=== PATIENT | male | born 2000 | race Caucasian/White ===

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

== ENCOUNTER 2020-01-14 16:05 | Emergency (ER) | payer OTHER, MEDICAID, SELFPAY ==
[2020-01-14 16:24] VITALS: BP 144/73; PULSE 62; RESP 16; TEMP 36.9; O2SAT 97
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
[2020-01-14] MEDS: KETOROLAC 60 MG/2 ML VIAL 30 MG IM (17:29)
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
--- NOTE | 2020-01-14 17:45 | ED_ITS ---
HPI - Extremity Injury (Upper) <LILLIAN Severino - Last Filed: 01/14/20 18:03> General Chief Complaint: Extremity Injury, Upper Stated Complaint: Punched Wall, Right Hand Pain Time Seen by Provider: 01/14/20 17:04 Source: patient Mode of arrival: Ambulatory Limitations: no limitations History of Present Illness HPI narrative: The patient is a 19-year-old male current some day smoker who denies any pertinent medical history presents with a chief complaint of right hand pain after punching a wall yesterday. He states he got angry so he punched a wall. He states he does this about once a year. He took ibuprofen at 9:00 a.m.. He is right-hand dominant. He denies any right wrist or elbow pain. Related Data Home Medications Medication Instructions Recorded Confirmed bupropion HCl 150 mg PO DAILY 01/14/20 01/14/20 prazosin 4 mg PO BID 01/14/20 01/14/20 Previous Rx's Medication Instructions Recorded ketorolac 10 mg PO TID PRN #14 tab 01/14/20 Allergies Allergy/AdvReac Type Severity Reaction Status Date / Time No Known Drug Allergies Allergy Verified 01/14/20 16:26 Review of Systems <LILLIAN Severino - Last Filed: 01/14/20 18:03> Review of Systems Narrative: GENERAL: Denies chills, fatigue, malaise, fever, sweats. HEENT: Denies sinus pain, ear pain, sore throat, difficulty swallowing, dizziness. RESPIRATORY: Denies dyspnea, cough, wheezing, hemoptysis, sputum. CARDIOVASCULAR: Denies chest pain, palpitations, orthopnea, edema, GASTROINTESTINAL: Denies nausea, vomiting, abdominal pain, diarrhea, cons tipation, melena. : Denies dysuria, frequency, incontinence, hematuria, urinary retention. MUSCULOSKELETAL: See HPI SKIN: Denies rash, skin lesions, or other NEUROLOGIC: Denies weakness, headache, numbness, change in speech, confusion, seizures, incoordination. PSYCHIATRIC: No concerning psychosocial issues. 12 point review of systems is negative except for those stated above Patient History <LILLIAN Severino - Last Filed: 01/14/20 18:03> Surgical History History of surgery on upper extremity History of surgical removal of pilonidal cyst History of tonsillectomy Hx of appendectomy Social History Smoking Status: Current some day smoker Smoking Status: Current some day smoker alcohol intake frequency: a few times a month Substance Use Type: marijuana Exam <LILLIAN Severino - Last Filed: 01/14/20 18:03> Narrative Exam Narrative: GENERAL: This is a well-nourished, well-developed patient, in no acute distress HEAD: Atraumatic. Normocephalic. No temporal or scalp tenderness. EYES: Pupils equal round and reactive. Extraocular motions intact. No scleral icterus. No injection or drainage. ENT: Nose without bleeding, purulent drainage or septal hematoma. Wearing a mask. Airway patent. NECK: Trachea midline. No JVD or lymphadenopathy. Supple, nontender, no meningeal signs. CARDIOVASCULAR: Regular rate and rhythm RESPIRATORY: No cough. No increased respiratory effort. No accessory muscle use. EXTREMITIES: Pain to palpation distal to right 5th digit, no visual abnormality. Able to flex and extend all fingers against resistance. Positive right radial pulse. Able to flex and extend right wrist. No snuffbox pain to palpation right wrist. BACK: Nontender without deformity or crepitance. No flank tenderness. NEURO: AOx3. SKIN: No rash or erythema on visible skin Initial Vital Signs Initial Vital Signs: Vital Signs Temperature 98.5 F 01/14/20 16:24 Pulse Rate 62 01/14/20 16:24 Respiratory Rate 16 01/14/20 16:24 Blood Pressure 144/73 H 01/14/20 16:24 Pulse Oximetry 97 01/14/20 16:24 <Jc Lizama DO - Last Filed: 01/14/20 18:08> Initial Vital Signs Initial Vital Signs: Vital Signs Temperature 98.5 F 01/14/20 16:24 Pulse Rate 62 01/14/20 16:24 Respiratory Rate 16 01/14/20 16:24 Blood Pressure 144/73 H 01/14/20 16:24 Pulse Oximetry 97 01/14/20 16:24 Scores <LILLIAN Severino - Last Filed: 12/08/20 18:03> GCS Jass coma scale eye opening: Spontaneous [place] coma scale verbal response: Orientated Jass coma scale motor response: Obey commands [place] coma scale total score: 15 Course <LILLIAN Severino - Last Filed: 01/14/20 18:03> Orders Ordered: ED Orders 01/14/20 16:27 XR hand RT min 3V Stat Discontinued Medications Ketorolac Tromethamine (Ketorolac 60 Mg/2 Ml Vial) 30 mg IM NOW ONE Stop: 01/14/20 17:15 Last Admin: 01/14/20 17:29 Dose: 30 mg Documented by: ASHLI Vital Signs Vital signs: Vital Signs - 8 hr 01/14/20 16:24 Temperature 98.5 F Pulse Rate 62 Respiratory Rate 16 Blood Pressure 144/73 H Pulse Oximetry 97 <Jc Lizama DO - Last Filed: 01/14/20 18:08> Orders Ordered: ED Orders 01/14/20 16:27 XR hand RT min 3V Stat Discontinued Medications Ketorolac Tromethamine (Ketorolac 60 Mg/2 Ml Vial) 30 mg IM NOW ONE Stop: 01/14/20 17:15 Last Admin: 01/14/20 17:29 Dose: 30 mg Documented by: ASHLI Vital Signs Vital signs: Vital Signs - 8 hr 01/14/20 16:24 Temperature 98.5 F Pulse Rate 62 Respiratory Rate 16 Blood Pressure 144/73 H Pulse Oximetry 97 MDM - Extremity Injury (Upper) <LILLIAN Severino - Last Filed: 01/14/20 18:03> Imaging Data Extremity x-ray #1: Radiologist's Impression: [address] [place] [id number] ReportSigned Patient: Ilya Kaufman JR BMR#: [id number]: 2000:[id number]/Sex: 19 / MDate of Service: 01/14/20Loc: EDAccession Number: [id number] Procedure: XR hand RT min 3V Ordering Provider: Elizabeth Yanez PROCEDURE: XR HAND RT MIN 3V INDICATIONS: punched wall TECHNIQUE: 3 views of the hand(s) acquired. COMPARISON: None. FINDINGS: Bones: No fractures or dislocations. Carpal bones are normally aligned. No suspicious bony lesions. Soft tissues: No suspicious soft tissue calcifications. IMPRESSION: No gross acute right hand fracture or dislocation. Dictated by: Wilberto Sanderson M.D. on 01/14/2020 at 15:43 Approved by: Wilberto Sanderson M.D. on 01/14/2020 at 15:44 [facility] Narrative Medical decision making narrative: The patient is a 19-year-old male who presents with a chief complaint of right hand pain after punching a wall. X-ray has no acute abnormalities. Neurovascularly intact throughout her stay. Discussed possibility of occult fracture and encouraged follow-up with primary care provider. Toradol given emergency department. Patient declined work note. Encouraged rest ice compression elevation. Patient has no questions or concerns upon discharge and states understanding return precautions as well as follow-up care. Discharge Plan Departure Patient Disposition: Home Clinical Impression: Contusion of hand Qualifiers: Encounter type: initial encounter Laterality: right Qualified Code(s): S60.221A - Contusion of right hand, initial encounter Instructions: DI for Contusion, How To Perform RICE (Rest, Ice, Compress, Elevate) Activity Restrictions/Additional Instructions: Thank you for trusting us with your care today. As I discussed, your x-ray shows no acute fracture. This does not rule out a soft tissue injury such as a ligament or tendon injury. It is important that you follow up with primary care provider, especially if worsening or no improvement. There can be fractures that did not show up on initial x-ray. Please use rest ice compression elevation. Please do not punch any more baum. I have given you a prescription of ketorolac or Toradol. This is an NSAID. Do not combine it with other NSAIDs such as Aleve or ibuprofen. I suggest taking it with some food, as it can irritate your stomach. I sent this prescription to [facility] in [place] Please come back to emergency department for any acute concerns. Please follow- up with primary care provider in the next few days. I have given you contact information to the [facility] water resources project manager, who can help you identify primary care provider. Prescriptions: New ketorolac 10 mg tablet 10 mg PO TID PRN (Reason: pain) Qty: 14 RF: 0 No Action prazosin 2 mg capsule 4 mg PO BID RF: 0 bupropion HCl 150 mg tablet extended release 24 hr 150 mg PO DAILY RF: 0 Referrals: [facility] [Outside] <Jc Lanker, DO - Last Filed: 01/14/20 18:08> Cosign ED Attending Cosignature Attestation: Dr Lizama Co-Sign Statement: I was available for consultation during this patient's emergency department visit. This chart is signed by myself for administrative purposes only. I did not have direct contact with this patient during this visit. They were seen independently by the APC.
[2020-01-14 18:23] VITALS: BP 140/80; PULSE 62; RESP 16; O2SAT 97
== END 2020-01-14 18:23 | disposition home or self-care (01) ==
PROVIDERS: Emergency Provider Nurse Practitioner Family; Family Provider Family Medicine
DX: S60.221A Contusion of right hand, initial encounter (principal); W22.01XA Walked into wall, initial encounter
CPT/HCPCS: 73130; 96372; 99281; 99283; J1885

== ENCOUNTER 2020-03-09 13:55 | Emergency (ER) | payer OTHER, MEDICAID, SELFPAY ==
[2020-03-09 14:24] VITALS: BP 143/69; PULSE 83; RESP 16; TEMP 37.3; O2SAT 98
[2020-03-09] MEDS: LIDO 1%/SOD BICARB 8.4% (10ML) 10 ML SYRINGE INJ (14:51)
--- NOTE | 2020-03-09 14:55 | ED.WOUNDLAC ---
HPI - Wound/Laceration <LILLIAN Severino - Last Filed: 03/09/20 15:31> General Chief Complaint: Wound/Laceration Stated Complaint: cut on left hand, needs stitches Time Seen by Provider: 03/09/20 14:33 Source: patient Mode of arrival: Ambulatory Limitations: no limitations History of Present Illness HPI narrative: The patient is a 19-year-old male who denies pertinent medical history presents with a chief complaint of a laceration to his left hand. 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 He states happened just prior to arrival. Tetanus was 2-3 years ago. Or open fracture. He states it is on the palmar side of his left hand, he has not washed it out. Related Data Home Medications Medication Instructions Recorded Confirmed prazosin 6 mg PO BID 01/14/20 03/09/20 risperidone 1 mg PO DAILY 03/09/20 03/09/20 Allergies Allergy/AdvReac Type Severity Reaction Status Date / Time No Known Drug Allergies Allergy Verified 03/09/20 14:26 Review of Systems <LILLIAN Severino - Last Filed: 03/09/20 15:31> Review of Systems Narrative: GENERAL: Denies chills, fatigue, malaise, fever, sweats. HEENT: Denies sinus pain, ear pain, sore throat, difficulty swallowing, dizziness. RESPIRATORY: Denies dyspnea, cough, wheezing, hemoptysis, sputum. CARDIOVASCULAR: Denies chest pain, palpitations, orthopnea, edema, GASTROINTESTINAL: Denies nausea, vomiting, abdominal pain, diarrhea, constipation, melena. : Denies dysuria, frequency, incontinence, hematuria, urinary retention. MUSCULOSKELETAL: denies weakness, joint pain, or bony pain SKIN: See HPI NEUROLOGIC: Denies weakness, headache, numbness, change in speech, confusion, seizures, incoordination. PSYCHIATRIC: No concerning psychosocial issues. 12 point review of systems is negative except for those stated above Patient History <LILLIAN Severino - Last Filed: 03/09/20 15:31> Surgical History History of surgery on upper extremity History of surgical removal of pilonidal cyst History of tonsillectomy Hx of appendectomy Social History Smoking Status: Current some day smoker Smoking Status: Current some day smoker alcohol intake frequency: a few times a month Substance Use Type: marijuana Exam <LILLIAN Severino - Last Filed: 03/09/20 15:31> Narrative Exam Narrative: GENERAL: This is a well-nourished, well-developed patient, in no acute distress HEAD: Atraumatic. Normocephalic. No temporal or scalp tenderness. EYES: Pupils equal round and reactive. Extraocular motions intact. No scleral icterus. No injection or drainage. ENT: Nose without bleeding, purulent drainage or septal hematoma. Wearing a mask Airway patent. NECK: Trachea midline. No JVD or lymphadenopathy. Supple, nontender, no meningeal signs. CARDIOVASCULAR: Regular rate and rhythm RESPIRATORY: No cough. No increased respiratory effort. No accessory muscle use. EXTREMITIES: Skin exam as noted. Is able to flex and extend all fingers left hand against resistance. Skin exam as noted. Positive left radial pulse BACK: Nontender without deformity or crepitance. No flank tenderness. NEURO: AOx3. SKIN: 1 cm irregular laceration noted at base of 1st digit left hand on palmar aspect. It is well approximated, no active bleeding. Initial Vital Signs Initial Vital Signs: Vital Signs Temperature 99.1 F 03/09/20 14:24 Pulse Rate 83 03/09/20 14:24 Respiratory Rate 16 03/09/20 14:24 Blood Pressure 143/69 H 03/09/20 14:24 Pulse Oximetry 98 03/09/20 14:24 <Jc Lizama DO - Last Filed: 03/09/20 17:19> Initial Vital Signs Initial Vital Signs: Vital Signs Temperature 99.1 F 03/09/20 14:24 Pulse Rate 83 03/09/20 14:24 Respiratory Rate 16 03/09/20 14:24 Blood Pressure 143/69 H 03/09/20 14:24 Pulse Oximetry 98 03/09/20 14:24 Procedures <LILLIAN Severino - Last Filed: 03/09/20 15:31> Laceration Repair Laceration 1: Site: hand Side (If applicable): left Size (cm): 1 Description: irregular Depth: simple, single layer Local Anesthetic: lidocaine 1% and with bicarb Amount of anesthesia used (mL): 4 Pre-repair: wound explored, irrigated extensively (Soaked in povidone iodine, cleansed with Hibiclens) and deep structures intact Skin layer closed with: nylon Size (cm): 5-0 Number of sutures: 2 Technique: simple, interrupted Scores <LILLIAN Severino - Last Filed: 03/09/20 15:31> GCS Jass coma scale eye opening: Spontaneous [place] coma scale verbal response: Orientated [place] coma scale motor response: Obey commands Jass coma scale total score: 15 Course <LILLIAN Severino - Last Filed: 03/09/20 15:31> Orders Ordered: Discontinued Medications Lidocaine/Sodium Bicarbonate (Lido 1%/Sod Bicarb 8.4% (10ml) 10 Ml Syringe) 10 ml INJ NOW ONE Stop: 03/09/20 14:47 Last Admin: 03/09/20 14:51 Dose: 10 ml Documented by: STEFANY Vital Signs Vital signs: Vital Signs - 8 hr 03/09/20 14:24 03/09/20 15:46 Temperature 99.1 F Pulse Rate 83 73 Respiratory Rate 16 15 Blood Pressure 143/69 H 132/72 Pulse Oximetry 98 99 <Jc Lizama DO - Last Filed: 03/09/20 17:19> Orders Ordered: Discontinued Medications Lidocaine/Sodium Bicarbonate (Lido 1%/Sod Bicarb 8.4% (10ml) 10 Ml Syringe) 10 ml INJ NOW ONE Stop: 03/09/20 14:47 Last Admin: 03/09/20 14:51 Dose: 10 ml Documented by: STEFANY Vital Signs Vital signs: Vital Signs - 8 hr 03/09/20 14:24 03/09/20 15:46 Temperature 99.1 F Pulse Rate 83 73 Respiratory Rate 16 15 Blood Pressure 143/69 H 132/72 Pulse Oximetry 98 99 MDM - Wound/Laceration <LILLIAN Severino - Last Filed: 03/09/20 15:31> Differential Diagnosis Differential diagnosis: Likely laceration MDM Narrative Medical decision making narrative: The patient is a 19-year-old male who presents with a chief complaint of laceration to his left hand. Tetanus is up-to-date. Patient declines x-ray. Sutures as noted in procedural note. Discussed keeping clean and dry, monitoring for signs and symptoms of infection. Discussed follow-up for suture removal in approximately 7 days. Patient has no questions or concerns upon discharge and states understanding of return precautions as well as follow-up care. Discharge Plan Departure Patient Disposition: Home Clinical Impression: Laceration Instructions: How to Care for a Laceration After Repair, DI for Laceration Repair Activity Restrictions/Additional Instructions: Thank you for trusting us with your care today. As discussed, please contact [employer] to help find a follow-up provider. Please keep your wound clean and dry. Monitor for signs and symptoms of infection such as extending redness, purulent drainage etcetera Please come back to the emergency department for any acute concerns. Your sutures need to come out in approximately 1 week. Prescriptions: No Action risperidone 1 mg tablet 1 mg PO DAILY RF: 0 prazosin 2 mg capsule 6 mg PO BID RF: 0 Stand Alone Forms: Work Release Note <Jc Lizama, DO - Last Filed: 03/09/20 17:19> Cosign ED Attending Cosignature Attestation: Dr Lizama Co-Sign Statement: I was available for consultation during this patient's emergency department visit. This chart is signed by myself for administrative purposes only. I did not have direct contact with this patient during this visit. They were seen independently by the APC.
[2020-03-09 15:46] VITALS: BP 132/72; PULSE 73; RESP 15; O2SAT 99
== END 2020-03-09 15:47 | disposition home or self-care (01) ==
PROVIDERS: Emergency Provider Nurse Practitioner Family; Family Provider Family Medicine
DX: S61.412A Laceration without foreign body of left hand, initial encounter (principal); W45.8XXA Other foreign body or object entering through skin, initial encounter; Y99.0 Civilian activity done for income or pay
CPT/HCPCS: 12001; 99282; 99283